=== PATIENT | female | born 1965 | race Two or more races ===

== ENCOUNTER 2018-07-10 06:30 | Day surgery (SDC) | payer OTHER | END 2018-07-10 12:11 | disposition home or self-care (01) | LOC: AMB-ENDOS 06:30 | DX: D12.1 Benign neoplasm of appendix (principal); K57.30 Diverticulosis of large intestine without perforation or abscess without bleeding; Z12.11 Encounter for screening for malignant neoplasm of colon ==

== ENCOUNTER 2019-01-22 07:26 | Day surgery (SDC) | payer OTHER | END 2019-01-22 14:25 | disposition home or self-care (01) | LOC: AMB-ENDOS 07:26 | DX: K63.5 Polyp of colon (principal); Z12.11 Encounter for screening for malignant neoplasm of colon ==